=== PATIENT | female | born 1935 | race Caucasian/White ===

== ENCOUNTER 2017-12-19 10:27 | Emergency (ER) | payer OTHER ==
--- NOTE | 2017-12-19 10:53 | EDPHY ---
General Time Seen by Provider: 12/19/17 10:35 Narrative: CHIEF COMPLAINT: Fall, dental trauma HISTORY OF PRESENT ILLNESS: Patient presents with complaints of fall and dental trauma. She says she was walking outside when she tripped on a step that she did not see. She landed directly on her upper teeth and face on concrete. No loss of consciousness but she noted significant bleeding immediately. She had pain in her upper lip, her jaw and in her upper teeth. She feels as though she dislocated her central incisors. She has no pain on the lower teeth. No headache, neck pain, nausea, vomiting, visual disturbance. She has no complaints of pain anywhere else. She is more concerned about her teeth and her lip. No other associated complaints or modifying factors. This happened at 10:00 a.m. NPO status: Breakfast including dairy at 9:00 a.m. REVIEW OF SYSTEMS: Ten systems reviewed and are negative unless otherwise noted in the HPI PCP: [facility] SPECIALISTS: None currently PAST MEDICAL HISTORY: Hypertension, postmenopausal PAST SURGICAL HISTORY: No recent surgeries or dental surgeries SOCIAL HISTORY: Never smoker. She is a retired psychiatrist. Lives here independently. FAMILY HISTORY: Noncontributory EXAMINATION General Appearance: Alert, no distress Head: normocephalic, atraumatic with exception of dental trauma below. There is no depression, Banegas sign, raccoon eyes or any hematoma to the scalp Eyes: Pupils equal and round, no conjunctival pallor or injection ENT, Mouth: Mucous membranes moist. The uvula is midline. There are is partial avulsion of the right premolar as well as mild posterior angulation of the central incisors. There is overlap of both lateral incisors. There is no root exposure and no missing teeth. Airway is widely patent without edema. There are 3 lip lacerations. The 1st is on the right upper lip, just above but not including the vermilion border. This is 1 cm with minimal distraction. No pulsatile bleeding. No foreign body. The 2nd is to the left and above the upper lip. Does not include the vermilion border. 0.5 cm. No foreign body or bleeding. The 3rd is located centrally on the upper lip involving the labial mucosa, deep laceration. No foreign body. No exposure of the underlying muscle. Neck: Normal inspection, supple, non-tender. No rigidity or meningismus. Respiratory: Lungs are clear to auscultation Cardiovascular: Regular rate and rhythm. No murmur Gastrointestinal: Abdomen is soft and nontender Back: non-tender, no bony abnormalities Neurological: GCS 15. A&O, nonfocal, normal gait. Strength is symmetric in all 4 limbs. Skin: Warm and dry, no rash. There are lip lacerations as above but no punctures, lacerations or abrasions elsewhere. Extremities: Nontender, no pedal edema. Symmetric range of motion. Psychiatric: Mood and affect normal DIFFERENTIAL DIAGNOSES: Including but not limited to dental fracture, alveolar fracture, maxillofacial fracture, intracranial hemorrhage, mandibular fracture MDM: 10:40 a.m. Fall with facial trauma and dental injuries to the upper teeth. No headache. No neck pain. No acute distress. She does have multiple areas of trauma to the lip as well. I will administer blocks to these areas will irrigate. At 1st she did declined any imaging, but she has now consented to maxillofacial imaging. She is still declining a CT scan of the head. I do feel this is reasonable as she does have mandibular pain in addition to the dental pain. 10:50 a.m. Infraorbital blocks administered bilaterally. She is starting to feel better. I have re-evaluated the teeth and there are areas no reduction that could be performed as there is instability of the central incisors, overlap of the lateral incisors and a partially avulsed right premolar. I will await imaging and contact maxillofacial surgeon. 11:[address] scan has been read by radiologist as midline maxillary fracture with loosening the teeth 8. 9. This does match clinically for acute loosening. I will discuss with oral maxillofacial surgeon. 12:00 p.m. Facial lacerations have been irrigated and I have re-evaluated her. The labial mucosal laceration is much more extensive that I 1st thought now that is clean. This is a 2 layer laceration down to but not including the muscular layer of the upper lip. This is a total of 5 cm laceration, jagged and branching. 12:50 p.m. I have repaired 2 simple lacerations on the outer lip as well as a complicated laceration on the inner upper lip. We discussed follow up with oral maxillofacial surgeon and dentist. We discussed ED precautions, ice to the affected area. We discussed pain medication, Peridex rinses and amoxicillin 3 times daily. We discussed returning here in 5-7 days for the external suture removals. Patient verbalized understanding, answer questions and she is discharged home stable condition, fully ambulatory with no difficulty. PROCEDURE: Laceration repair, 1. Consent: Verbal Location: Right upper lip without involvement of the vermilion border Length of repair: 1 cm Complexity: Simple Layer involvement: Anesthesia: Infraorbital nerve block Irrigation: Extensive Debridement: None Procedure description: Following good anesthesia, the wound was copiously irrigated. Wound bed was explored with a sterile glove, and there is no foreign body noted. Wound borders were approximated well with good hemostasis. Tolerated well without complication. Suture/Staple material: 6-0 Prolene, 2 simple interrupted sutures Wound care: Routine as discussed Suture/Staple removal: 5-7 Days PROCEDURE: Laceration repair,# 2 Consent: Verbal Location: Left upper lip without involvement of the vermilion border Length of repair: 0.5 cm Complexity: Simple Layer involvement: Simple single-layer Anesthesia: Infraorbital nerve block Irrigation: Extensive Debridement: None Procedure description: Following good anesthesia, the wound was copiously irrigated. Wound bed was explored with a sterile glove, and there is no foreign body noted. Wound borders were approximated well with good hemostasis. Tolerated well without complication. Suture/Staple material: 6-0 Prolene, 1 simple interrupted suture Wound care: Routine as discussed Suture/Staple removal: 5-7 Days PROCEDURE: Laceration repair, 3. Consent: Verbal Location: Upper lip labial mucosa Length of repair: 5 cm, partial thickness Complexity: Complex Layer involvement: 2 layer closure Anesthesia: Infraorbital nerve block Irrigation: Extensive Debridement: None Procedure description: Following good anesthesia, the wound was copiously irrigated. Wound bed was explored with a sterile glove, and there is no foreign body noted. Wound borders were approximated well with good hemostasis. Tolerated well without complication. Suture/Staple material: 5-0 fast-absorbing plain gut, 5 subcutaneous sutures and 12 labial mucosal sutures simple interrupted Wound care: Routine as discussed Suture/Staple removal: None PROCEDURE: Infraorbital nerve block, left Indication: Lip laceration Consent: Verbal Location: left infraorbital nerve Anesthesia: Lidocaine 1% plain, 0.25% Marcaine plain, 5mL Description: Base of the finger was prepped. The above was infused without difficulty. Tolerated well. Good anesthesia. Complications: None PROCEDURE: Infraorbital nerve block, right Indication: Lip laceration Consent: Verbal Location: Right infraorbital nerve Anesthesia: Lidocaine 1% plain, 0.25% Marcaine plain, 5mL Description: Base of the finger was prepped. The above was infused without difficulty. Tolerated well. Good anesthesia. Complications: None SUPERVISION: Patient was independently examined, but I discussed the case with my secondary supervising physician Dr. Galloway - Diagnostics Imaging Results: Imaging Impressions Face CT 12/19/17 10:53 Impression: Suspicious for a midline maxillary fracture associated with indeterminate age loosening of teeth #8 and #9. Please see above. General information for patients regarding this examination can be found at [email or web address]. If you have questions or comments about this report, please contact me at (hospital) or [phone] (cell). - History Smoking Status: Never smoked - Objective Vital Signs: Initial Vital Signs Temperature (C) 97.9 F 12/19/17 10:30 Heart Rate 84 12/19/17 10:30 Respiratory Rate 18 12/19/17 10:30 Blood Pressure 180/97 H 12/19/17 10:30 O2 Sat (%) 95 12/19/17 10:30 O2 Delivery Mode Room Air Allergies/Adverse Reactions: bee pollen [Bee Pollen] Allergy (Unknown, Verified 12/19/17 10:29) Swelling/neck,face,throat Iodinated Contrast- Oral and IV Dye [IV Dye, Iodine Containing] Allergy (Unknown , Verified 12/19/17 10:29) Swelling/neck,face,throat Sulfa (Sulfonamide Antibiotics) Allergy (Unknown, Verified 12/19/17 10:29) Hives Home Medications: Medication Instructions Recorded ESTROGENS,CONJUGATED [Premarin] 0.45 mg PO 01/30/11 Losartan/Hydrochlorothiazide 0 each PO 01/30/11 [Losartan-Hctz 100-12.5 Mg Tab] VERAPAMIL HCL 240 01/30/11 Amoxicillin Trihydrate [Amoxil 250 250 mg PO Q8 #21 cap 12/19/17 mg CAP (*)] Chlorhexidine Gluconate [Periogard] 5 ml MM AD #437 mouthwash 12/19/17 Hydrocodone/APAP 5/325 [Roy 1 - 2 tab PO Q6H PRN #10 tab 12/19/17 5/325 (*)] Medications Given: Discontinued Medications Diphtheria/Tetanus/Acell Pertussis (Boostrix) 0.5 ml IM .ONCE ONE Stop: 12/19/17 11:01 Last Admin: 12/19/17 11:15 Dose: 0.5 ml Departure - Departure Disposition: Home, Routine, Self-Care Clinical Impression: Maxillary fracture Qualifiers: Encounter type: initial encounter Fracture type: closed Laterality: unspecified laterality Qualified Code(s): S02.401A - Maxillary fracture, unspecified side, initial encounter for closed fracture Dental trauma Qualifiers: Encounter type: initial encounter Qualified Code(s): S09.93XA - Unspecified injury of face, initial encounter Complicated laceration of lip Qualifiers: Encounter type: initial encounter Qualified Code(s): S01.511A - Laceration without foreign body of lip, initial encounter Condition: Good Instructions: Laceration (ED), Facial Fracture (ED), Facial Laceration (ED) Additional Instructions: 1. . Peridex rinses after each meal and before bedtime 2. Amoxicillin 250 mg 3 times daily for 1 week 3. Pain medication as prescribed as needed 4. Ice to affected area often 5. Soft diet for the next week 6. Contact oral maxillofacial surgeon Dr. Cabrera on Thursday morning Referrals: Meka Cabrera MD [Medical Doctor] - As per Instructions Prescriptions: Amoxicillin Trihydrate [Amoxil 250 mg CAP (*)] 250 mg PO Q8 #21 cap Chlorhexidine Gluconate [Periogard] 5 ml MM AD #437 mouthwash Hydrocodone/APAP 5/325 [Roy 5/325 (*)] 1 - 2 tab PO Q6H PRN #10 tab PRN Reason: Pain, Breakthrough
[2017-12-19] MEDS ORDERED: TDAP ADULT 0.5 ML INJ (BOOSTRIX) IM ONE (11:00)
[2017-12-19 12:47] VITALS: BP 158/104
== END 2017-12-19 13:03 | disposition home or self-care (01) ==
PROC: 0CQ0XZZ Repair Upper Lip, External Approach (ICD-10-PCS; principal; 2017-12-19)
PROC: 0CQ1XZZ Repair Lower Lip, External Approach (ICD-10-PCS; 2017-12-19)
DX: S02.401A Maxillary fracture, unspecified side, initial encounter for closed fracture (principal); S01.511A Laceration without foreign body of lip, initial encounter; W01.0XXA Fall on same level from slipping, tripping and stumbling without subsequent striking against object, initial encounter; Y92.89 Other specified places as the place of occurrence of the external cause; Y99.8 Other external cause status; Y93.01 Activity, walking, marching and hiking; Z23 Encounter for immunization; I10 Essential (primary) hypertension